=== PATIENT | female | born 1940 | race Caucasian/White ===

== ENCOUNTER 2017-06-24 12:50 | Outpatient (CLI) | payer BC | END 2017-06-24 12:51 | disposition home or self-care (01) | LOC: BICRAD 12:50 | PROVIDERS: ATTEND Internal Medicine Rheumatology | DX: M54.2 Cervicalgia (principal); M47.892 Other spondylosis, cervical region | CPT/HCPCS: 72052 ==

== ENCOUNTER 2017-07-13 12:59 | Outpatient (CLI) | payer BC | END 2017-07-13 13:00 | disposition home or self-care (01) | LOC: BICULT 12:59 | PROVIDERS: ATTEND Otolaryngology Plastic Surgery within the Head & Neck | DX: E04.1 Nontoxic single thyroid nodule (principal); E04.2 Nontoxic multinodular goiter | CPT/HCPCS: 76536 ==

== ENCOUNTER 2017-12-07 09:57 | Outpatient (CLI) | payer BC | END 2017-12-07 09:58 | disposition home or self-care (01) | LOC: BICMAMMO 09:57 | PROVIDERS: ATTEND Family Medicine | DX: M81.0 Age-related osteoporosis without current pathological fracture (principal) | CPT/HCPCS: 77080 ==

== ENCOUNTER 2018-07-15 13:06 | Outpatient (CLI) | payer BC ==
--- NOTE | 2018-07-15 15:01 | RAD ---
RIGHT ANKLE THREE VIEWS: HISTORY: Pain in the right ankle. FINDINGS: Minimal soft tissue swelling. Mild degenerative change at the ankle with mild spurring. No fracture or acute abnormality. IMPRESSION: No acute finding. POS: CAROL ANN
== END 2018-07-15 13:07 | disposition home or self-care (01) ==
LOC: BICRAD 13:06
PROVIDERS: ATTEND Internal Medicine Rheumatology
DX: M25.571 Pain in right ankle and joints of right foot (principal)

== ENCOUNTER 2018-07-29 11:58 | Outpatient (CLI) | payer BC ==
--- NOTE | 2018-08-08 13:18 | MMO ---
Bilateral MAMMO Bilat Screen [id number]. CLINICAL HISTORY: Patient is 77 years old and is seen for screening. The patient has the following family history of breast cancer: sister, at age 68. The patient has no personal history of cancer. VIEWS: The views performed were: bilateral craniocaudal with tomosynthesis and bilateral mediolateral oblique with tomosynthesis. FILMS COMPARED: The present examination has been compared to prior imaging studies performed at [facility] on 11/08/2000, 12/02/2001, 12/11/2002, 12/13/2003, 12/12/2004, 12/14/2005, 12/22/2006, 12/26/2007, 12/26/2008, 12/26/2009, 12/29/2010, 01/04/2012, 01/25/2013, 03/08/2015, 04/08/2016 and 04/14/2017. MAMMOGRAM FINDINGS: There are scattered fibroglandular densities. There are no suspicious masses, calcifications or areas of architectural distortion. IMPRESSION: THERE IS NO MAMMOGRAPHIC EVIDENCE OF MALIGNANCY. A ROUTINE FOLLOW-UP MAMMOGRAM IN 1 YEAR IS RECOMMENDED. THE RESULTS OF THIS EXAM WERE SENT TO THE PATIENT. ACR BI-RADS Category 1 - Negative MAMMOGRAPHY NOTE: 1. A negative mammogram report should not delay a biopsy if a dominant of clinically suspicious mass is present. 2. Approximately 10% to 15% of breast cancers are not detected by mammography. 3. Adenosis and dense breasts may obscure an underlying neoplasm.
== END 2018-07-29 11:59 | disposition home or self-care (01) ==
LOC: BICMAMMO 11:58
PROVIDERS: ATTEND Family Medicine
DX: Z12.31 Encounter for screening mammogram for malignant neoplasm of breast (principal); Z80.3 Family history of malignant neoplasm of breast
CPT/HCPCS: 77063; 77067

== ENCOUNTER 2018-08-09 12:20 | Outpatient (CLI) | payer BC ==
--- NOTE | 2018-08-09 13:26 | ULT ---
THYROID ULTRASOUND: Date: 08/09/18 INDICATION: Goiter. Comparison made to prior thyroid ultrasound exam dated 07/13/17. FINDINGS: Both lobes are enlarged and very heterogeneous. Right lobe measures 5.2 x 2.1 x 1.5 cm. Left lobe farshad sures 5.8 x 2.5 x 2.0 cm. The size and appearance of the thyroid lobe do not appear significantly kennedi nged from prior exam. There are numerous nodules in both lobes. Most of these are solid and appear st able. A large cystic nodule in the superior left lobe seen previously has decreased. The cystic compo nent noted previously is much smaller today. IMPRESSION: Multinodular goiter. The numerous solid nodules appear stable from last year. A nodule in the superio r left lobe which had a large cystic component on last year's exam shows resolution of the cystic com ponent on today's study. POS: CAROL ANN
== END 2018-08-09 12:21 | disposition home or self-care (01) ==
LOC: BICULT 12:20
PROVIDERS: ATTEND Otolaryngology Plastic Surgery within the Head & Neck
DX: E83.52 Hypercalcemia (principal); E04.8 Other specified nontoxic goiter; E04.2 Nontoxic multinodular goiter
CPT/HCPCS: 76536

== ENCOUNTER 2019-06-23 13:06 | Outpatient (CLI) | payer BC ==
--- NOTE | 2019-06-23 14:47 | BD ---
DEXA BONE DENSITY STUDY: Date: 06/23/2019 HISTORY: Postmenopausal. FINDINGS: Lumbar Spine: BMD (g/cm2) L1 1.442 T-Score: +4.1 L2 1.622 T-Score: +5.4 L3 1.837 T-Score: +6.8 L4 1.648 T-Score: +5.3 Total 1.647 T-Score: +5.5 Left Femoral Neck: 0.763 T-Score: -0.8 Total Femur: 0.913 T-Score: -0.2 IMPRESSION: Normal bone mineral density of the lumbar spine and left femoral neck. POS: SONIA
== END 2019-06-23 13:07 | disposition home or self-care (01) ==
LOC: BICMAMMO 13:06
PROVIDERS: ATTEND Family Medicine
DX: M81.0 Age-related osteoporosis without current pathological fracture (principal); E03.9 Hypothyroidism, unspecified
CPT/HCPCS: 77080

== ENCOUNTER 2020-11-04 20:45 | Inpatient (IN) | payer BC, MEDICARE ==
[2020-11-05 00:44] LABS: #Basophils 0.1 thou/uL (0.0-0.2); #Lymphocytes 3.1 thou/uL (1.20-3.40); #Monocytes 0.8 thou/uL (0.11-0.59); #Neutrophils 12.7 thou/uL (1.40-6.50); %Basophils 0.6 % (0.0-1.0); %Eosinophils 0.3 % (0.0-10.0); %Lymphocytes 18.4 % (21.0-51.0); %Neutrophils 75.7 % (42.0-75.0); Hemoglobin 12.9 g/dL (12.0-16.0); Mean Corpuscular HGB CONC 34.1 g/dL (32.0-36.0); Mean Corpuscular Hemoglobin 33.1 pg (27.0-31.0); Mean Corpuscular Volume 97.1 fL (78.0-98.0); Mean Platelet Volume 7.4 fL (7.4-10.4); Platelet Count 388 thou/uL (130-400); RBC Distribution Width 12.5 % (11.5-14.5); Red Blood Cell (RBC) Count 3.89 mill/uL (4.20-5.40); White Blood Cell (WBC) Count 16.8 thou/uL (4.8-10.8)
[2020-11-05 00:58] LABS: Bacteria/HPF None Seen HPF (None Seen); Bilirubin Negative (Negative); Blood, Urine Negative (Negative); Clarity Clear (Clear); Glucose, Urine (Dipstick) Normal (Negative); Ketone, Urine 40 mg/dL (Negative); Leukocyte 250 Leu/uL (Negative); Nitrite Negative (Negative); Protein, Urine (Dipstick) 70 mg/dL (Neg-Trace); RBC/HPF 0-3 HPF (0-3); Specific Gravity, Urine 1.035 (1.002-1.036); Squamous Epithelial 0-3 HPF (0-3); Urobilinogen Normal mg/dL (Less than 2); WBC/HPF 21-50 HPF (0-3); pH, Urine 5.5 (5.0-9.0)
[2020-11-05] MEDS ORDERED: cefTRIAXone\\ROCEPHIN 2 GM VIAL ONE (02:10)
[2020-11-05] MEDS ORDERED: Sodium Chloride 0.9% 100 ML ONE (02:10)
[2020-11-05] MEDS ORDERED: Aspirin Chewable 81 MG TAB ONE (02:10)
[2020-11-05 03:01] LABS: CKMB 10.1 ng/mL (0-6.6)
[2020-11-05] MEDS: Pilocarpine 5 MG TAB PO SCH ×2 (03:55→22:13)
[2020-11-05 04:25] LABS: Troponin I 0.105 ng/mL (< 0.028)
[2020-11-05 07:23] LABS: Troponin I 0.105 ng/mL (< 0.028)
[2020-11-05] MEDS ORDERED: TRAMADOL HCL PO PRN (10:35)
[2020-11-05] MEDS ORDERED: ACETAMINOPHEN PO PRN (10:35)
[2020-11-05] MEDS ORDERED: Loratadine 10 MG TAB PO PRN (11:27)
[2020-11-05] MEDS: traMADol HCl 50 MG TAB PO PRN (14:52)
[2020-11-05] MEDS: Acetaminophen 325 MG TAB PO PRN (14:58)
[2020-11-05] MEDS: Sodium Chloride 0.9% 1,000 ML IV SCH (18:28)
[2020-11-05] MEDS: Nystatin 500,000 UNITS/5 ML UDCUP SSW SCH ×2 (18:29→22:13)
[2020-11-06] MEDS: cefTRIAXone\\ROCEPHIN 1 GM in Sodium Chloride 0.9% 100 ML IVPB SCH (02:07)
[2020-11-06] MEDS: Sodium Chloride 0.9% 1,000 ML IV SCH ×2 (04:59→18:40)
[2020-11-06] MEDS ORDERED: Morphine 2 MG/ML VIAL SLOW IVP PRN (08:25)
[2020-11-06] MEDS: Pilocarpine 5 MG TAB PO SCH ×3 (09:00→21:02)
[2020-11-06] MEDS: Nystatin 500,000 UNITS/5 ML UDCUP SSW SCH ×4 (12:01→20:54)
[2020-11-06] MEDS: Losartan 25 MG TAB PO SCH (12:02)
[2020-11-06] MEDS: Atenolol 25 MG TAB PO SCH (12:03)
[2020-11-06] MEDS: traMADol HCl 50 MG TAB PO PRN ×2 (12:06→21:04)
[2020-11-06] MEDS: Acetaminophen 325 MG TAB PO PRN ×2 (12:20→21:03)
[2020-11-06] MEDS ORDERED: Citrucel 500 MG TAB PO PRN (14:51)
[2020-11-06] MEDS ORDERED: Ketotifen Fumarate 0.025% Ophth Soln 5 ml Bottle EA EYE PRN (14:56)
[2020-11-06] MEDS ORDERED: Acetaminophen 650 MG/20.3 ML UDCUP PO PRN (16:41)
[2020-11-06] MEDS: Ezetimibe 10 MG TAB PO SCH (18:31)
[2020-11-06] MEDS: BIOTENE MOUTH SPRAY 44.3 ML PO SCH (22:08)
[2020-11-07] MEDS: cefTRIAXone\\ROCEPHIN 1 GM in Sodium Chloride 0.9% 100 ML IVPB SCH (02:42)
[2020-11-07] MEDS: Sodium Chloride 0.9% 1,000 ML IV SCH ×2 (02:55→17:34)
[2020-11-07 05:24] LABS: #Basophils 0.1 thou/uL (0.0-0.2); #Eosinphils 0.1 thou/uL (0.0-0.7); #Lymphocytes 2.8 thou/uL (1.20-3.40); #Monocytes 0.7 thou/uL (0.11-0.59); #Neutrophils 13.6 thou/uL (1.40-6.50); %Basophils 0.3 % (0.0-1.0); %Eosinophils 0.3 % (0.0-10.0); %Lymphocytes 16.1 % (21.0-51.0); %Monocytes 4.1 % (0.0-10.0); %Neutrophils 79.2 % (42.0-75.0); Hemoglobin 11.7 g/dL (12.0-16.0); Mean Corpuscular HGB CONC 33.2 g/dL (32.0-36.0); Mean Corpuscular Hemoglobin 32.3 pg (27.0-31.0); Mean Corpuscular Volume 97.3 fL (78.0-98.0); Mean Platelet Volume 7.5 fL (7.4-10.4); Platelet Count 332 thou/uL (130-400); RBC Distribution Width 12.5 % (11.5-14.5); Red Blood Cell (RBC) Count 3.62 mill/uL (4.20-5.40); White Blood Cell (WBC) Count 17.1 thou/uL (4.8-10.8)
[2020-11-07 07:33] LABS: Anion Gap 16 mmol/L (10-20); BUN (Urea Nitrogen) 16 mg/dL (9.8-20.1); Calc. Creatinine Clearance 39 mL/min (70-130); Calcium 8.3 mg/dL (7.8-10.44); Carbon Dioxide 21 mmol/L (23-31); Chloride 106 mmol/L (98-107); Potassium 3.7 mmol/L (3.5-5.1); Sodium 139 mmol/L (136-145)
[2020-11-07 07:41] LABS: Glucose 55 mg/dL (83-110)
[2020-11-07] MEDS ORDERED: Dextrose 50% Abboject 50 ML SYRINGE SLOW IVP PRN (07:49)
[2020-11-07] MEDS ORDERED: Fluconazole 100 MG TAB PO SCH (09:00)
[2020-11-07] MEDS ORDERED: Cholecalciferol 1,000 UNITS (25 MCG) TAB PO SCH (09:00)
[2020-11-07] MEDS ORDERED: Colchicine 0.6 MG TAB PO SCH (09:00)
[2020-11-07] MEDS: BIOTENE MOUTH SPRAY 44.3 ML PO SCH ×3 (09:07→21:32)
[2020-11-07] MEDS: traMADol HCl 50 MG TAB PO PRN ×2 (09:12→17:48)
[2020-11-07] MEDS: Acetaminophen 325 MG TAB PO PRN ×2 (09:13→17:47)
[2020-11-07] MEDS: Pilocarpine 5 MG TAB PO SCH ×3 (09:15→21:31)
[2020-11-07] MEDS: Losartan 25 MG TAB PO SCH (09:15)
[2020-11-07] MEDS ORDERED: Fluconazole In NaCl,Iso-Osm 200 MG in Premix Bag 1 BAG IVPB SCH (17:15)
[2020-11-07] MEDS ORDERED: Cosyntropin 250 MCG VIAL SLOW IVP SCH (17:15)
[2020-11-07] MEDS ORDERED: Labetalol HCl 100 MG/20 ML VIAL SLOW IVP SCH (17:45)
[2020-11-07] MEDS: Atenolol 25 MG TAB PO SCH (17:46)
[2020-11-07] MEDS: Ezetimibe 10 MG TAB PO SCH (17:50)
[2020-11-07] MEDS ORDERED: Multivitamins, Adult 10 ML, Folic Acid 1 MG, Thiamine HCl 100 MG in Dextrose 5 %-0.45 %... IV SCH (18:00)
[2020-11-07] MEDS: Metoprolol Tartrate 5 MG/5 ML VIAL IVP SCH (18:01)
[2020-11-07] MEDS: Multivitamins, Adult 10 ML, Folic Acid 1 MG, Thiamine HCl 100 MG in Dextrose 5 %-0.45 %... IV SCH (21:32)
[2020-11-08] MEDS: Metoprolol Tartrate 5 MG/5 ML VIAL IVP SCH ×4 (00:33→17:24)
[2020-11-08] MEDS: cefTRIAXone\\ROCEPHIN 1 GM in Sodium Chloride 0.9% 100 ML IVPB SCH (02:35)
[2020-11-08 05:29] LABS: #Lymphocytes 1.7 thou/uL (1.20-3.40); #Monocytes 0.6 thou/uL (0.11-0.59); %Basophils 0.1 % (0.0-1.0); %Eosinophils 0.2 % (0.0-10.0); %Lymphocytes 12.5 % (21.0-51.0); %Monocytes 4.7 % (0.0-10.0); %Neutrophils 82.4 % (42.0-75.0); Hemoglobin 11.6 g/dL (12.0-16.0); Mean Corpuscular HGB CONC 33.6 g/dL (32.0-36.0); Mean Corpuscular Hemoglobin 32.5 pg (27.0-31.0); Mean Corpuscular Volume 96.7 fL (78.0-98.0); Mean Platelet Volume 8.2 fL (7.4-10.4); Platelet Count 209 thou/uL (130-400); RBC Distribution Width 12.3 % (11.5-14.5); Red Blood Cell (RBC) Count 3.57 mill/uL (4.20-5.40); White Blood Cell (WBC) Count 13.4 thou/uL (4.8-10.8)
[2020-11-08 05:49] LABS: Anion Gap 10 mmol/L (10-20); BUN (Urea Nitrogen) 8 mg/dL (9.8-20.1); Calc. Creatinine Clearance 41 mL/min (70-130); Calcium 7.9 mg/dL (7.8-10.44); Carbon Dioxide 21 mmol/L (23-31); Chloride 109 mmol/L (98-107); Glucose 164 mg/dL (83-110); Magnesium 1.8 mg/dL (1.6-2.6); Potassium 3.4 mmol/L (3.5-5.1); Sodium 137 mmol/L (136-145)
[2020-11-08 05:54] LABS: Phosphorus 1.9 mg/dL (2.3-4.7)
[2020-11-08] MEDS ORDERED: Potassium Chloride 20 MEQ TAB PO SCH ×2 (06:15→07:00)
[2020-11-08] MEDS ORDERED: Electrolyte Replacement Protocol FS PRN (06:15)
[2020-11-08] MEDS ORDERED: Magnesium 2 GM/50 ML 2 GM in Premix Bag 1 BAG IVPB SCH (06:30)
[2020-11-08] MEDS: Sodium Chloride 0.9% 1,000 ML IV SCH ×2 (06:53→12:39)
[2020-11-08] MEDS: PHOS-NAK 1 PKT PACK PO SCH ×3 (07:37→13:18)
[2020-11-08] MEDS: Pantoprazole 40 MG VIAL IVP SCH (10:49)
[2020-11-08] MEDS: Ezetimibe 10 MG TAB PO SCH (10:49)
[2020-11-08] MEDS: Pilocarpine 5 MG TAB PO SCH ×3 (10:50→20:27)
[2020-11-08] MEDS: BIOTENE MOUTH SPRAY 44.3 ML PO SCH ×3 (11:14→20:26)
[2020-11-08] MEDS: Atenolol 25 MG TAB PO SCH (11:45)
[2020-11-08] MEDS: Fluconazole In NaCl,Iso-Osm 200 MG in Premix Bag 1 BAG IVPB SCH (17:23)
[2020-11-08] MEDS: Multivitamins, Adult 10 ML, Folic Acid 1 MG, Thiamine HCl 100 MG in Dextrose 5 %-0.45 %... IV SCH (20:26)
[2020-11-08] MEDS: Acetaminophen 325 MG TAB PO PRN (20:27)
[2020-11-08] MEDS: traMADol HCl 50 MG TAB PO PRN (20:27)
[2020-11-09] MEDS: Metoprolol Tartrate 5 MG/5 ML VIAL IVP SCH ×3 (01:44→14:26)
[2020-11-09] MEDS: Sodium Chloride 0.9% 1,000 ML IV SCH (02:39)
[2020-11-09] MEDS: cefTRIAXone\\ROCEPHIN 1 GM in Sodium Chloride 0.9% 100 ML IVPB SCH (02:40)
[2020-11-09] MEDS: hydrALAZINE 20 MG/ML VIAL SLOW IVP PRN (04:12)
[2020-11-09 04:32] LABS: #Eosinphils 0.1 thou/uL (0.0-0.7); #Lymphocytes 1.6 thou/uL (1.20-3.40); #Monocytes 0.6 thou/uL (0.11-0.59); #Neutrophils 10.5 thou/uL (1.40-6.50); %Basophils 0.2 % (0.0-1.0); %Eosinophils 0.4 % (0.0-10.0); %Lymphocytes 12.7 % (21.0-51.0); %Monocytes 4.6 % (0.0-10.0); Hemoglobin 11.9 g/dL (12.0-16.0); Mean Corpuscular HGB CONC 34.3 g/dL (32.0-36.0); Mean Corpuscular Hemoglobin 33.3 pg (27.0-31.0); Mean Corpuscular Volume 97.1 fL (78.0-98.0); Mean Platelet Volume 7.6 fL (7.4-10.4); Platelet Count 269 thou/uL (130-400); RBC Distribution Width 12.6 % (11.5-14.5); Red Blood Cell (RBC) Count 3.57 mill/uL (4.20-5.40); White Blood Cell (WBC) Count 12.8 thou/uL (4.8-10.8)
[2020-11-09 05:00] LABS: Anion Gap 12 mmol/L (10-20); BUN (Urea Nitrogen) 4 mg/dL (9.8-20.1); Calc. Creatinine Clearance 44 mL/min (70-130); Calcium 8.1 mg/dL (7.8-10.44); Carbon Dioxide 22 mmol/L (23-31); Chloride 109 mmol/L (98-107); Glucose 132 mg/dL (83-110); Magnesium 2.8 mg/dL (1.6-2.6); Sodium 140 mmol/L (136-145)
[2020-11-09] MEDS ORDERED: Potassium Chloride 20 MEQ TAB PO SCH ×2 (08:00→09:45)
[2020-11-09] MEDS ORDERED: Famotidine/PF 20 mg/2ml Vial ONE (08:10)
[2020-11-09] MEDS ORDERED: Fentanyl 100 MCG/2 ML VIAL ONE (08:10)
[2020-11-09] MEDS ORDERED: Clindamycin/D5W 900 mg/50 ml Premix Bag ONE (08:15)
[2020-11-09] MEDS ORDERED: Levofloxacin 500 mg/D5W 100 ml Premix Bag ONE (08:15)
[2020-11-09] MEDS ORDERED: PHENYLEPHRINE-NS 100 MCG/ML 10 ML SYRINGE ONE (08:21)
[2020-11-09] MEDS ORDERED: PROPOFOL 200 MG/20 ML VIAL ONE (08:21)
[2020-11-09] MEDS ORDERED: Promethazine HCl 25 MG/ML VIAL IM PRN (09:05)
[2020-11-09] MEDS ORDERED: Promethazine HCl 25 MG/ML VIAL IVPB PRN (09:05)
[2020-11-09] MEDS ORDERED: Ondansetron HCl/PF 4 MG/2 ML Vial IVP PRN (09:05)
[2020-11-09] MEDS: Ezetimibe 10 MG TAB PO SCH (10:08)
[2020-11-09] MEDS: traMADol HCl 50 MG TAB PO PRN ×2 (10:09→19:47)
[2020-11-09] MEDS: Acetaminophen 325 MG TAB PO PRN ×2 (10:12→20:10)
[2020-11-09] MEDS: Pilocarpine 5 MG TAB PO SCH ×3 (10:12→22:18)
[2020-11-09] MEDS: Pantoprazole 40 MG VIAL IVP SCH (10:14)
[2020-11-09] MEDS: BIOTENE MOUTH SPRAY 44.3 ML PO SCH ×3 (10:14→22:19)
[2020-11-09] MEDS ORDERED: Multivit, Therapeutic 1 TAB PO SCH (10:15)
[2020-11-09] MEDS ORDERED: Losartan 25 MG TAB PO SCH (12:45)
[2020-11-09 17:55] LABS: #Lymphocytes 1.6 thou/uL (1.20-3.40); #Monocytes 0.9 thou/uL (0.11-0.59); #Neutrophils 15.8 thou/uL (1.40-6.50); %Basophils 0.2 % (0.0-1.0); %Eosinophils 0.2 % (0.0-10.0); %Lymphocytes 8.6 % (21.0-51.0); %Monocytes 5.1 % (0.0-10.0); %Neutrophils 85.9 % (42.0-75.0); Hemoglobin 12.7 g/dL (12.0-16.0); Mean Corpuscular HGB CONC 34.4 g/dL (32.0-36.0); Mean Corpuscular Hemoglobin 33.1 pg (27.0-31.0); Mean Corpuscular Volume 96.3 fL (78.0-98.0); Mean Platelet Volume 7.6 fL (7.4-10.4); Platelet Count 325 thou/uL (130-400); RBC Distribution Width 12.7 % (11.5-14.5); Red Blood Cell (RBC) Count 3.85 mill/uL (4.20-5.40); White Blood Cell (WBC) Count 18.4 thou/uL (4.8-10.8)
[2020-11-09] MEDS: Fluconazole In NaCl,Iso-Osm 200 MG in Premix Bag 1 BAG IVPB SCH (18:28)
[2020-11-10] MEDS: cefTRIAXone\\ROCEPHIN 1 GM in Sodium Chloride 0.9% 100 ML IVPB SCH (02:43)
[2020-11-10] MEDS: traMADol HCl 50 MG TAB PO PRN ×4 (02:52→20:32)
[2020-11-10] MEDS: Acetaminophen 325 MG TAB PO PRN ×4 (02:54→20:30)
[2020-11-10 05:32] LABS: Anion Gap 11 mmol/L (10-20); BUN (Urea Nitrogen) 8 mg/dL (9.8-20.1); Calc. Creatinine Clearance 39 mL/min (70-130); Calcium 7.8 mg/dL (7.8-10.44); Carbon Dioxide 27 mmol/L (23-31); Chloride 105 mmol/L (98-107); Glucose 94 mg/dL (83-110); Magnesium 1.9 mg/dL (1.6-2.6); Potassium 3.7 mmol/L (3.5-5.1); Sodium 139 mmol/L (136-145)
[2020-11-10 05:36] LABS: Phosphorus 1.9 mg/dL (2.3-4.7)
[2020-11-10] MEDS: hydrALAZINE 20 MG/ML VIAL SLOW IVP PRN (05:37)
[2020-11-10] MEDS ORDERED: Magnesium 2 GM/50 ML 2 GM in Premix Bag 1 BAG IVPB SCH (08:00)
[2020-11-10] MEDS: Atenolol 25 MG TAB PO SCH (09:10)
[2020-11-10] MEDS: Multivit, Therapeutic 1 TAB PO SCH (09:11)
[2020-11-10] MEDS: Losartan 25 MG TAB PO SCH (09:11)
[2020-11-10] MEDS: Ezetimibe 10 MG TAB PO SCH (09:11)
[2020-11-10] MEDS: PHOS-NAK 1 PKT PACK PER TUBE SCH ×2 (09:12→13:43)
[2020-11-10] MEDS: Pantoprazole 40 MG VIAL IVP SCH (09:12)
[2020-11-10] MEDS: BIOTENE MOUTH SPRAY 44.3 ML PO SCH ×3 (09:13→21:48)
[2020-11-10] MEDS: Pilocarpine 5 MG TAB PO SCH ×3 (09:13→20:47)
[2020-11-10 10:50] LABS: #Basophils 0.1 thou/uL (0.0-0.2); #Eosinphils 0.1 thou/uL (0.0-0.7); #Lymphocytes 2.6 thou/uL (1.20-3.40); #Monocytes 0.9 thou/uL (0.11-0.59); #Neutrophils 13.2 thou/uL (1.40-6.50); %Basophils 0.3 % (0.0-1.0); %Eosinophils 0.3 % (0.0-10.0); %Lymphocytes 15.6 % (21.0-51.0); %Monocytes 5.5 % (0.0-10.0); %Neutrophils 78.2 % (42.0-75.0); Hemoglobin 12.5 g/dL (12.0-16.0); Mean Corpuscular HGB CONC 34.5 g/dL (32.0-36.0); Mean Corpuscular Hemoglobin 33.6 pg (27.0-31.0); Mean Corpuscular Volume 97.6 fL (78.0-98.0); Mean Platelet Volume 7.7 fL (7.4-10.4); Platelet Count 323 thou/uL (130-400); RBC Distribution Width 12.8 % (11.5-14.5); Red Blood Cell (RBC) Count 3.73 mill/uL (4.20-5.40); White Blood Cell (WBC) Count 16.8 thou/uL (4.8-10.8)
[2020-11-10] MEDS ORDERED: Colchicine 0.6 MG TAB PO SCH (11:00)
[2020-11-10] MEDS: Fluconazole In NaCl,Iso-Osm 200 MG in Premix Bag 1 BAG IVPB SCH (17:38)
[2020-11-11] MEDS: cefTRIAXone\\ROCEPHIN 1 GM in Sodium Chloride 0.9% 100 ML IVPB SCH (02:39)
[2020-11-11] MEDS: Acetaminophen 325 MG TAB PO PRN ×4 (04:02→20:44)
[2020-11-11] MEDS: traMADol HCl 50 MG TAB PO PRN ×4 (04:02→20:45)
[2020-11-11 05:06] LABS: #Lymphocytes 1.8 thou/uL (1.20-3.40); #Monocytes 0.6 thou/uL (0.11-0.59); #Neutrophils 12.2 thou/uL (1.40-6.50); %Basophils 0.3 % (0.0-1.0); %Eosinophils 0.2 % (0.0-10.0); %Lymphocytes 12.3 % (21.0-51.0); %Neutrophils 83.2 % (42.0-75.0); Hemoglobin 13.1 g/dL (12.0-16.0); Mean Corpuscular HGB CONC 32.6 g/dL (32.0-36.0); Mean Corpuscular Hemoglobin 32.1 pg (27.0-31.0); Mean Corpuscular Volume 98.4 fL (78.0-98.0); Mean Platelet Volume 9.9 fL (7.4-10.4); Platelet Count 267 thou/uL (130-400); RBC Distribution Width 13.1 % (11.5-14.5); Red Blood Cell (RBC) Count 4.08 mill/uL (4.20-5.40); White Blood Cell (WBC) Count 14.7 thou/uL (4.8-10.8)
[2020-11-11 05:38] LABS: Anion Gap 15 mmol/L (10-20); BUN (Urea Nitrogen) 10 mg/dL (9.8-20.1); Calc. Creatinine Clearance 75 mL/min (70-130); Calcium 8.5 mg/dL (7.8-10.44); Carbon Dioxide 25 mmol/L (23-31); Chloride 101 mmol/L (98-107); Glucose 116 mg/dL (83-110); Phosphorus 2.7 mg/dL (2.3-4.7); Potassium 4.2 mmol/L (3.5-5.1); Sodium 137 mmol/L (136-145)
[2020-11-11] MEDS: Losartan 25 MG TAB PO SCH (07:46)
[2020-11-11] MEDS: Atenolol 25 MG TAB PO SCH (07:46)
[2020-11-11] MEDS: Colchicine 0.6 MG TAB PO SCH (07:46)
[2020-11-11] MEDS: Multivit, Therapeutic 1 TAB PO SCH (07:47)
[2020-11-11] MEDS: Pantoprazole 40 MG VIAL IVP SCH (07:47)
[2020-11-11] MEDS: Ezetimibe 10 MG TAB PO SCH (07:47)
[2020-11-11] MEDS: Pilocarpine 5 MG TAB PO SCH ×3 (07:48→20:41)
[2020-11-11] MEDS: BIOTENE MOUTH SPRAY 44.3 ML PO SCH ×3 (07:49→20:43)
[2020-11-11] MEDS ORDERED: Amlodipine 10 MG TAB PO SCH ×2 (09:00→09:24)
[2020-11-11] MEDS ORDERED: Amlodipine 5 MG TAB PO SCH (09:30)
[2020-11-11] MEDS ORDERED: Losartan 25 MG TAB PER TUBE SCH (10:00)
[2020-11-11] MEDS ORDERED: Pancrelipase DR 12,000 1 CAP FS PRN (15:45)
[2020-11-11] MEDS ORDERED: Sodium Bicarbonate Tab 325 MG TAB PER TUBE PRN (15:45)
[2020-11-12] MEDS: cefTRIAXone\\ROCEPHIN 1 GM in Sodium Chloride 0.9% 100 ML IVPB SCH (01:17)
[2020-11-12] MEDS: traMADol HCl 50 MG TAB PO PRN ×4 (03:36→21:45)
[2020-11-12] MEDS: Acetaminophen 325 MG TAB PO PRN ×4 (03:37→21:44)
[2020-11-12 05:27] LABS: Phosphorus 2.3 mg/dL (2.3-4.7)
[2020-11-12] MEDS ORDERED: Amlodipine 5 MG TAB PO SCH (09:00)
[2020-11-12] MEDS: Colchicine 0.6 MG TAB PO SCH (09:33)
[2020-11-12] MEDS: Losartan 25 MG TAB PER TUBE SCH (09:33)
[2020-11-12] MEDS: Amlodipine 10 MG TAB PO SCH (09:33)
[2020-11-12] MEDS: Ezetimibe 10 MG TAB PO SCH (09:36)
[2020-11-12] MEDS: Atenolol 25 MG TAB PO SCH (09:36)
[2020-11-12] MEDS: Pantoprazole 40 MG VIAL IVP SCH (09:38)
[2020-11-12] MEDS: Pilocarpine 5 MG TAB PO SCH ×3 (09:38→21:46)
[2020-11-12] MEDS: Multivits W-Minerals Liquid 15 ML LIQ PER TUBE SCH (09:39)
[2020-11-12] MEDS: BIOTENE MOUTH SPRAY 44.3 ML PO SCH ×3 (09:40→21:45)
[2020-11-13] MEDS: Acetaminophen 325 MG TAB PO PRN ×3 (04:58→18:23)
[2020-11-13] MEDS: traMADol HCl 50 MG TAB PO PRN ×3 (04:59→18:23)
[2020-11-13 05:37] LABS: Phosphorus 3.4 mg/dL (2.3-4.7)
[2020-11-13] MEDS ORDERED: Magnesium 2 GM/50 ML 2 GM in Premix Bag 1 BAG IVPB SCH (06:30)
[2020-11-13] MEDS: Losartan 25 MG TAB PER TUBE SCH (08:52)
[2020-11-13] MEDS: Ezetimibe 10 MG TAB PO SCH (08:52)
[2020-11-13] MEDS: Amlodipine 10 MG TAB PO SCH (08:53)
[2020-11-13] MEDS: Pilocarpine 5 MG TAB PO SCH ×3 (08:53→21:35)
[2020-11-13] MEDS: Multivits W-Minerals Liquid 15 ML LIQ PER TUBE SCH (08:53)
[2020-11-13] MEDS: BIOTENE MOUTH SPRAY 44.3 ML PO SCH ×3 (08:53→21:00)
[2020-11-13] MEDS: Atenolol 25 MG TAB PO SCH (08:53)
[2020-11-13] MEDS: Colchicine 0.6 MG TAB PO SCH (08:53)
[2020-11-13] MEDS: Pantoprazole 40 MG VIAL IVP SCH (08:54)
[2020-11-13 09:53] VITALS: BMI 15.5
[2020-11-13 10:33] LABS: Anion Gap 15 mmol/L (10-20); BUN (Urea Nitrogen) 16 mg/dL (9.8-20.1); Calc. Creatinine Clearance 46 mL/min (70-130); Calcium 8.9 mg/dL (7.8-10.44); Carbon Dioxide 25 mmol/L (23-31); Chloride 101 mmol/L (98-107); Glucose 113 mg/dL (83-110); Potassium 4.7 mmol/L (3.5-5.1); Sodium 136 mmol/L (136-145)
[2020-11-14] MEDS: traMADol HCl 50 MG TAB PO PRN ×3 (00:04→14:13)
[2020-11-14] MEDS: Acetaminophen 325 MG TAB PO PRN ×3 (00:05→14:15)
[2020-11-14 05:17] LABS: Phosphorus 4.1 mg/dL (2.3-4.7)
[2020-11-14] MEDS: Losartan 25 MG TAB PER TUBE SCH (09:09)
[2020-11-14] MEDS: Ezetimibe 10 MG TAB PO SCH (09:10)
[2020-11-14] MEDS: Colchicine 0.6 MG TAB PO SCH (09:10)
[2020-11-14] MEDS: Atenolol 25 MG TAB PO SCH (09:10)
[2020-11-14] MEDS: Pantoprazole 40 MG VIAL IVP SCH (09:10)
[2020-11-14] MEDS: Amlodipine 10 MG TAB PO SCH (09:10)
[2020-11-14] MEDS: Pilocarpine 5 MG TAB PO SCH ×2 (09:10→16:28)
[2020-11-14] MEDS: Multivits W-Minerals Liquid 15 ML LIQ PER TUBE SCH (09:11)
[2020-11-14 10:30] LABS: #Basophils 0.1 thou/uL (0.0-0.2); #Eosinphils 0.2 thou/uL (0.0-0.7); #Lymphocytes 1.5 thou/uL (1.20-3.40); #Monocytes 0.8 thou/uL (0.11-0.59); #Neutrophils 8.2 thou/uL (1.40-6.50); %Basophils 1.1 % (0.0-1.0); %Eosinophils 1.8 % (0.0-10.0); %Lymphocytes 14.2 % (21.0-51.0); %Monocytes 7.3 % (0.0-10.0); %Neutrophils 75.6 % (42.0-75.0); Hemoglobin 13.8 g/dL (12.0-16.0); Mean Corpuscular HGB CONC 31.7 g/dL (32.0-36.0); Mean Corpuscular Hemoglobin 31.9 pg (27.0-31.0); Platelet Count 423 thou/uL (130-400); RBC Distribution Width 12.9 % (11.5-14.5); Red Blood Cell (RBC) Count 4.32 mill/uL (4.20-5.40); White Blood Cell (WBC) Count 10.8 thou/uL (4.8-10.8)
[2020-11-14] MEDS: BIOTENE MOUTH SPRAY 44.3 ML PO SCH ×2 (10:36→16:28)
[2020-11-14 11:10] LABS: Anion Gap 15 mmol/L (10-20); BUN (Urea Nitrogen) 20 mg/dL (9.8-20.1); Calc. Creatinine Clearance 41 mL/min (70-130); Calcium 9.5 mg/dL (7.8-10.44); Carbon Dioxide 30 mmol/L (23-31); Chloride 95 mmol/L (98-107); Glucose 117 mg/dL (83-110); Sodium 135 mmol/L (136-145)
[2020-11-14 16:31] VITALS: BP 138/71; TEMP 97.9
== END 2020-11-14 18:53 | disposition home health service (06) | DRG 871 ==
LOC: ERS 20:45 → ERHOLD 11-05 03:18 → 2SW 11-05 14:05 → OBSVTOIN 11-05 16:26 → 2NO 11-08 22:31
PROVIDERS: ADMIT Student in an Organized Health Care Education/Training Program; ATTEND Internal Medicine
PROC: 0DH63UZ Insertion of Feeding Device into Stomach, Percutaneous Approach (ICD-10-PCS; principal; 2020-11-09)
DX: A41.51 Sepsis due to Escherichia coli [E. coli] (principal); E43 Unspecified severe protein-calorie malnutrition; N39.0 Urinary tract infection, site not specified; R64 Cachexia; Z68.1 Body mass index [BMI] 19.9 or less, adult; B37.0 Candidal stomatitis; M06.9 Rheumatoid arthritis, unspecified; E78.5 Hyperlipidemia, unspecified; G89.29 Other chronic pain; R13.12 Dysphagia, oropharyngeal phase; K58.9 Irritable bowel syndrome, unspecified; K21.9 Gastro-esophageal reflux disease without esophagitis; Z96.653 Presence of artificial knee joint, bilateral; E87.6 Hypokalemia; Z79.899 Other long term (current) drug therapy; Z88.1 Allergy status to other antibiotic agents; Z88.8 Allergy status to other drugs, medicaments and biological substances; Z90.710 Acquired absence of both cervix and uterus; Z88.0 Allergy status to penicillin; Z87.891 Personal history of nicotine dependence; Z98.890 Other specified postprocedural states
CPT/HCPCS: 36415; 36416; 71045; 74018; 74230; 80048; 80053; 80400; 81003; 81015; 82306; 82553; 82607; 83735; 84100; 84425; 84443; 84484; 85025; 86850; 86900; 86901; 87077; 87086; 87186; 93005; 96365; C9113; G0378; J0360; J0696; J0834; J1450; J1956; J2704; J3010; J3411; J3475; J3490; J7042; S0028